=== PATIENT | female | born 1985 | race Caucasian/White ===

== ENCOUNTER → 2017-04-20 10:13 | Outpatient (CLI) | payer MEDICAID ==
[2015-12-02 03:57] VITALS: BMI 24.8
[~2017-04-20 10:13] MED LIST: ACETAMINOPHEN325 MG PO; FERROUS SULFAT325 MG PO; GUAIFENESI100 MG/5 M PO; IBUPROFEN600 MG PO; KEFLEX500 MG PO; PERCOCET 5-3251 TAB PO; PRENATAL COMPLE1 TAB PO; PRENATAL GUMMIES
[2017-04-20 11:03] LABS: CREATININE - SERUM 0.8 mg/dL (0.6-1.3)
== END | disposition home or self-care (01) ==
LOC: D.CT 10:00
PROVIDERS: Family Medicine
DX: R10.9 Unspecified abdominal pain (principal); R11.2 Nausea with vomiting, unspecified; R19.7 Diarrhea, unspecified

== ENCOUNTER 2018-02-17 19:08 | Emergency (ER) | payer MEDICAID ==
[2015-12-02 03:57] VITALS: BMI 24.8
[2018-02-17 19:39] LABS: BASOPHILS 0.2 % (0-2); EOSINOPHILS 0.5 % (0-7); HEMATOCRIT 40.6 % (36.0-48.0); HEMOGLOBIN 13.9 g/dL (12-16); IMMATURE GRANULOCYTES 0.4 % (0-5); LYMPHOCYTES 13.2 % (15-50); MCHC 34.2 g/dL (31.0-37.0); MCV 90.6 fL (80.0-100.0); MONOCYTES 6.3 % (2-11); NEUTROPHILS 79.4 % (40-80); PLATELET COUNT 183 10x3/uL (130-400); RBC 4.48 10x6/uL (4.00-5.40); RDW 12.6 % (11.5-14.5); WBC 11.1 10x3/uL (4.8-10.8)
[2018-02-17 19:46] LABS: INR 1.11 (0.85-1.17); PROTIME 13.9 SECONDS (11.6-15.0)
[2018-02-17 19:48] LABS: D-DIMER-QUANTITATIVE < 0.27 ug/mLFEU (0.20-0.54)
[2018-02-17 20:00] LABS: ALBUMIN 3.9 g/dL (3.4-5.0); ALKALINE PHOSPHATASE 38 U/L (46-116); ALT (SGPT) 21 U/L (10-68); AMYLASE - SERUM 76 U/L (25-115); BILIRUBIN - TOTAL 0.34 mg/dL (0.2-1.3); CALC OSMOLALITY 278 mosm/kg (275-300); CALCIUM 9.3 mg/dL (8.5-10.1); CARBON DIOXIDE 27.6 mmol/L (21.0-32.0); CHLORIDE - SERUM 102 mmol/L (98-107); CREATININE - SERUM 0.8 mg/dL (0.6-1.3); GLUCOSE 87 mg/dL (74-106); LIPASE 211 U/L (73-393); MAGNESIUM - SERUM 2.2 mg/dL (1.8-2.4); POTASSIUM - SERUM 3.3 mmol/L (3.5-5.1); PROTEIN - SERUM 7.7 g/dL (6.4-8.2); SODIUM 140 mmol/L (136-145); UREA NITROGEN 15 mg/dL (7-18); eGFR NON AFRICAN AMERICAN 89 mL/min (90-120)
[2018-02-17 20:01] LABS: HCG SERUM NEGATIVE (NEGATIVE)
[2018-02-17 20:06] LABS: APPEARANCE HAZY (CLEAR); BILIRUBIN NEGATIVE (NEGATIVE); COLOR YELLOW (YELLOW); GLUCOSE NEGATIVE (NEGATIVE); KETONE NEGATIVE (NEGATIVE); NITRITE NEGATIVE (NEGATIVE); PROTEIN NEGATIVE (NEGATIVE); SPECIFIC GRAVITY 1.005 (1.005-1.020); UROBILINOGEN NORMAL (NORMAL)
== END 2018-02-17 21:45 | disposition home or self-care (01) ==
LOC: D.ER 19:08
PROVIDERS: Family Medicine; Nurse Practitioner Family
DX: R10.13 Epigastric pain (principal); R11.10 Vomiting, unspecified; Z87.19 Personal history of other diseases of the digestive system

== ENCOUNTER 2018-02-19 16:48 | Inpatient (IN) | payer MEDICAID ==
[~2018-02-19] VITALS: Ht 172.7 cm; Wt 66.9 kg
[2018-02-19 17:31] LABS: BASOPHILS 0.2 % (0-2); EOSINOPHILS 0.4 % (0-7); HEMATOCRIT 40.9 % (36.0-48.0); HEMOGLOBIN 13.6 g/dL (12-16); LYMPHOCYTES 29.2 % (15-50); MCH 30.4 pg (26.0-34.0); MCHC 33.3 g/dL (31.0-37.0); MCV 91.3 fL (80.0-100.0); MEAN PLATELET VOLUME 11.2 fL (7.4-10.4); MONOCYTES 18.9 % (2-11); NEUTROPHILS 51.3 % (40-80); PLATELET COUNT 166 10x3/uL (130-400); RBC 4.48 10x6/uL (4.00-5.40); RDW 12.6 % (11.5-14.5)
[2018-02-19 17:50] LABS: ALBUMIN 3.9 g/dL (3.4-5.0); ALKALINE PHOSPHATASE 35 U/L (46-116); ALT (SGPT) 22 U/L (10-68); AMYLASE - SERUM 72 U/L (25-115); BILIRUBIN - TOTAL 0.38 mg/dL (0.2-1.3); CALCIUM 9.5 mg/dL (8.5-10.1); CARBON DIOXIDE 23.7 mmol/L (21.0-32.0); CHLORIDE - SERUM 103 mmol/L (98-107); CREATININE - SERUM 0.8 mg/dL (0.6-1.3); GLUCOSE 79 mg/dL (74-106); LIPASE 173 U/L (73-393); POTASSIUM - SERUM 3.4 mmol/L (3.5-5.1); PROTEIN - SERUM 7.9 g/dL (6.4-8.2); SODIUM 139 mmol/L (136-145); WBC 4.5 10x3/uL (4.8-10.8); eGFR NON AFRICAN AMERICAN 89 mL/min (90-120)
[2018-02-19 17:51] LABS: CALC OSMOLALITY 275 mosm/kg (275-300); UREA NITROGEN 10 mg/dL (7-18)
[2018-02-19 17:54] LABS: APPEARANCE CLEAR (CLEAR); BILIRUBIN 2+ (NEGATIVE); COLOR YELLOW (YELLOW); GLUCOSE NEGATIVE (NEGATIVE); KETONE SMALL mg/dL (NEGATIVE); NITRITE NEGATIVE (NEGATIVE); PROTEIN NEGATIVE (NEGATIVE); SPECIFIC GRAVITY 1.015 (1.005-1.020)
[2018-02-19 17:55] LABS: BACTERIA FEW /hpf (NONE SEEN); MUCUS <1+ /lpf (NONE SEEN); RED CELLS - URINE 0-5 /hpf (0-5); WHITE CELLS - URINE 0-5 /hpf (0-5)
[2018-02-19 17:56] LABS: CALCIUM OXALATE CRYSTALS 0-5 /hpf (NONE SEEN)
[2018-02-19 21:34] VITALS: BP 112/66; BMI 21.3
[2018-02-19] MEDS ORDERED: EFFEXOR75 MG PO (21:49)
[2018-02-19] MEDS ORDERED: BUTALB-APAP-CA1 EACH PO (21:51)
[2018-02-19] MEDS ORDERED: DOXYCYCLINE HY100 M2 PO (21:53)
[2018-02-19] MEDS ORDERED: REGLAN10 MG PO (21:53)
[2018-02-19] MEDS ORDERED: PHENERGAN25 MG RC (21:54)
[2018-02-20] VITALS: BP 109/61
[2018-02-20 04:00] VITALS: BP 90/53
[2018-02-20 06:26] LABS: ALBUMIN 2.8 g/dL (3.4-5.0); ALKALINE PHOSPHATASE 23 U/L (46-116); ALT (SGPT) 18 U/L (10-68); BILIRUBIN - TOTAL 0.14 mg/dL (0.2-1.3); CALC OSMOLALITY 279 mosm/kg (275-300); CALCIUM 8.5 mg/dL (8.5-10.1); CARBON DIOXIDE 25.1 mmol/L (21.0-32.0); CHLORIDE - SERUM 108 mmol/L (98-107); CREATININE - SERUM 0.7 mg/dL (0.6-1.3); GLUCOSE 89 mg/dL (74-106); POTASSIUM - SERUM 3.9 mmol/L (3.5-5.1); SODIUM 141 mmol/L (136-145); UREA NITROGEN 13 mg/dL (7-18); eGFR NON AFRICAN AMERICAN > 90 mL/min (90-120)
[2018-02-20 07:29] LABS: HEMATOCRIT 33.7 % (36.0-48.0); MCH 30.3 pg (26.0-34.0); MCHC 32.6 g/dL (31.0-37.0); MCV 92.8 fL (80.0-100.0); MEAN PLATELET VOLUME 10.8 fL (7.4-10.4); PLATELET COUNT 135 10x3/uL (130-400); RBC 3.63 10x6/uL (4.00-5.40); RDW 12.8 % (11.5-14.5)
[2018-02-20 07:44] LABS: WBC 3.2 10x3/uL (4.8-10.8)
[2018-02-20 08:02] VITALS: BP 102/55
[2018-02-20 08:31] LABS: BASOPHILS 1 % (0-2); EOSINOPHILS 4 % (0-7); LYMPHOCYTES 39 % (15-50); MONOCYTES 18 % (2-11); NEUTROPHILS 38 % (40-80); PLATELET ESTIMATE NORMAL
[2018-02-20 10:38] VITALS: BP 108/64
[2018-02-20 13:39] VITALS: BMI 21.2
[2018-02-20 14:48] LABS: HCG URINE NEGATIVE (NEGATIVE)
[2018-02-20 15:50] VITALS: Ht 172.7 cm; Wt 66.9 kg
[2018-02-20 20:15] VITALS: BP 123/75
[2018-02-20 23:40] VITALS: BP 108/76
[2018-02-21 04:05] VITALS: BP 96/67
[2018-02-21 05:39] LABS: BASOPHILS 0.2 % (0-2); EOSINOPHILS 0.8 % (0-7); HEMATOCRIT 32.9 % (36.0-48.0); HEMOGLOBIN 10.8 g/dL (12-16); IMMATURE GRANULOCYTES 0.2 % (0-5); MCH 30.3 pg (26.0-34.0); MCHC 32.8 g/dL (31.0-37.0); MCV 92.2 fL (80.0-100.0); MEAN PLATELET VOLUME 11.1 fL (7.4-10.4); NEUTROPHILS 65.8 % (40-80); PLATELET COUNT 139 10x3/uL (130-400); RBC 3.57 10x6/uL (4.00-5.40); RDW 12.5 % (11.5-14.5)
[2018-02-21 06:28] LABS: ALBUMIN 2.7 g/dL (3.4-5.0); ALKALINE PHOSPHATASE 53 U/L (46-116); CALCIUM 8.3 mg/dL (8.5-10.1); CARBON DIOXIDE 27.3 mmol/L (21.0-32.0); CHLORIDE - SERUM 106 mmol/L (98-107); CREATININE - SERUM 0.7 mg/dL (0.6-1.3); GLUCOSE 106 mg/dL (74-106); PROTEIN - SERUM 5.9 g/dL (6.4-8.2); SODIUM 141 mmol/L (136-145); eGFR NON AFRICAN AMERICAN > 90 mL/min (90-120)
[2018-02-21 06:38] LABS: ALT (SGPT) 698 U/L (10-68); CALC OSMOLALITY 278 mosm/kg (275-300); POTASSIUM - SERUM 3.1 mmol/L (3.5-5.1); UREA NITROGEN 6 mg/dL (7-18)
[2018-02-21 08:05] VITALS: BP 108/72
[2018-02-21] MEDS ORDERED: NORCO-5 PO (11:12)
[2018-02-21 11:49] VITALS: BP 100/70
== END 2018-02-21 17:01 | disposition home or self-care (01) | DRG 419 ==
LOC: D.ER 16:48 → D.EDHOLD 20:36 → D.M2 20:36
PROVIDERS: Emergency Medicine; Family Medicine; Surgery
PROC: 0FT44ZZ Resection of Gallbladder, Percutaneous Endoscopic Approach (ICD-10-PCS; principal; 2018-02-20 13:00)
DX: K80.20 Calculus of gallbladder without cholecystitis without obstruction (principal); K21.9 Gastro-esophageal reflux disease without esophagitis; Z87.891 Personal history of nicotine dependence

== ENCOUNTER 2018-06-26 10:12 | Inpatient (IN) | payer MEDICAID ==
[~2018-06-26] VITALS: Ht 172.7 cm; Wt 62.7 kg
[~2018-06-26 10:12] MED LIST changes: +BUTALB-APAP-CA1 EACH PO; +DOXYCYCLINE HY100 M2 PO; +EFFEXOR75 MG PO; +NORCO-5 PO; +PHENERGAN25 MG RC; +REGLAN10 MG PO
[2018-06-26] MEDS ORDERED: ZOFRAN ODT4 MG/UDTAB PO (13:07)
[2018-06-26] MEDS ORDERED: CYCLOBENZAPRINE10 MG PO (13:09)
[2018-06-26 13:40] VITALS: BP 104/71; BMI 21.0
[2018-06-26 14:23] LABS: BASOPHILS 0.5 % (0-2); EOSINOPHILS 0.9 % (0-7); HEMATOCRIT 36.1 % (36.0-48.0); HEMOGLOBIN 11.8 g/dL (12-16); IMMATURE GRANULOCYTES 0.1 % (0-5); MCH 30.3 pg (26.0-34.0); MCHC 32.7 g/dL (31.0-37.0); MCV 92.6 fL (80.0-100.0); NEUTROPHILS 66.5 % (40-80); RDW 12.5 % (11.5-14.5); WBC 8.6 10x3/uL (4.8-10.8)
[2018-06-26 14:24] LABS: PLATELET COUNT 171 10x3/uL (130-400)
[2018-06-26 14:45] LABS: ALBUMIN 3.5 g/dL (3.4-5.0); ALKALINE PHOSPHATASE 31 U/L (46-116); ALT (SGPT) 23 U/L (10-68); BILIRUBIN - TOTAL 0.46 mg/dL (0.2-1.3); CALC OSMOLALITY 280 mosm/kg (275-300); CALCIUM 8.9 mg/dL (8.5-10.1); CARBON DIOXIDE 25.2 mmol/L (21.0-32.0); CHLORIDE - SERUM 106 mmol/L (98-107); CREATININE - SERUM 0.8 mg/dL (0.6-1.3); GLUCOSE 76 mg/dL (74-106); POTASSIUM - SERUM 3.9 mmol/L (3.5-5.1); PROTEIN - SERUM 6.8 g/dL (6.4-8.2); SODIUM 141 mmol/L (136-145); UREA NITROGEN 14 mg/dL (7-18); eGFR NON AFRICAN AMERICAN 89 mL/min (90-120)
[2018-06-26 18:32] LABS: CKMB 0.2 U/L (0.0-3.6); CREATINE KINASE 62 UL (21-215)
[2018-06-26 18:33] LABS: TROPONIN-I < 0.017 ng/mL (0.000-0.060)
[2018-06-26 19:00] VITALS: BP 111/50
[2018-06-26 20:00] VITALS: BP 111/50
[2018-06-26 23:46] LABS: CKMB 0.4 U/L (0.0-3.6); CREATINE KINASE 47 UL (21-215)
[2018-06-26 23:48] LABS: TROPONIN-I < 0.017 ng/mL (0.000-0.060)
[2018-06-27 04:00] VITALS: BP 100/55
[2018-06-27 06:12] LABS: BASOPHILS 0.6 % (0-2); EOSINOPHILS 2.6 % (0-7); HEMATOCRIT 33.4 % (36.0-48.0); HEMOGLOBIN 10.9 g/dL (12-16); IMMATURE GRANULOCYTES 0.2 % (0-5); MCH 30.3 pg (26.0-34.0); MCHC 32.6 g/dL (31.0-37.0); MCV 92.8 fL (80.0-100.0); MONOCYTES 12.5 % (2-11); NEUTROPHILS 56.1 % (40-80); PLATELET COUNT 157 10x3/uL (130-400); RDW 12.5 % (11.5-14.5)
[2018-06-27 07:30] LABS: CALC OSMOLALITY 278 mosm/kg (275-300); CALCIUM 8.1 mg/dL (8.5-10.1); CHLORIDE - SERUM 107 mmol/L (98-107); CKMB 0.3 U/L (0.0-3.6); CREATINE KINASE 40 UL (21-215); CREATININE - SERUM 0.9 mg/dL (0.6-1.3); GLUCOSE 88 mg/dL (74-106); POTASSIUM - SERUM 3.8 mmol/L (3.5-5.1); SODIUM 141 mmol/L (136-145); THYROID STIMULATING HORMONE 1.13 uIU/mL (0.36-3.74); TROPONIN-I < 0.017 ng/mL (0.000-0.060); eGFR NON AFRICAN AMERICAN 77 mL/min (90-120)
[2018-06-27 07:32] LABS: UREA NITROGEN 10 mg/dL (7-18)
[2018-06-27 07:59] VITALS: BP 109/60
[2018-06-27 11:21] VITALS: BP 100/54
[2018-06-27 13:13] VITALS: Ht 172.7 cm; Wt 62.7 kg
[2018-06-27 15:24] VITALS: BP 112/64
[2018-06-27 20:00] VITALS: BP 111/67
[2018-06-27 21:25] LABS: APPEARANCE CLEAR (CLEAR); BILIRUBIN NEGATIVE (NEGATIVE); COLOR YELLOW (YELLOW); GLUCOSE NEGATIVE (NEGATIVE); KETONE NEGATIVE (NEGATIVE); NITRITE NEGATIVE (NEGATIVE); PROTEIN NEGATIVE (NEGATIVE); UROBILINOGEN NORMAL (NORMAL)
[2018-06-27 21:27] LABS: EPITHELIAL CELLS 0-5 /hpf (0-5); RED CELLS - URINE 0-5 /hpf (0-5); WHITE CELLS - URINE 0-5 /hpf (0-5)
[2018-06-27 21:28] LABS: BACTERIA MODERATE /hpf (NONE SEEN)
[2018-06-28 04:00] VITALS: BP 109/68
[2018-06-28 07:59] VITALS: BP 101/61
[2018-06-28 21:01] VITALS: BP 107/68
[2018-06-29 01:32] VITALS: BP 109/62
[2018-06-29 05:30] LABS: BASOPHILS 0.6 % (0-2); EOSINOPHILS 1.3 % (0-7); HEMATOCRIT 34.9 % (36.0-48.0); HEMOGLOBIN 11.4 g/dL (12-16); IMMATURE GRANULOCYTES 0.2 % (0-5); LYMPHOCYTES 29.1 % (15-50); MCH 30.2 pg (26.0-34.0); MCHC 32.7 g/dL (31.0-37.0); MCV 92.6 fL (80.0-100.0); MEAN PLATELET VOLUME 10.9 fL (7.4-10.4); MONOCYTES 8.7 % (2-11); NEUTROPHILS 60.1 % (40-80); PLATELET COUNT 172 10x3/uL (130-400); RBC 3.77 10x6/uL (4.00-5.40); RDW 12.4 % (11.5-14.5); WBC 6.2 10x3/uL (4.8-10.8)
[2018-06-29 05:58] LABS: ALBUMIN 3.1 g/dL (3.4-5.0); ALKALINE PHOSPHATASE 26 U/L (46-116); ALT (SGPT) 21 U/L (10-68); BILIRUBIN - TOTAL 0.32 mg/dL (0.2-1.3); CALC OSMOLALITY 273 mosm/kg (275-300); CALCIUM 8.4 mg/dL (8.5-10.1); CARBON DIOXIDE 26.4 mmol/L (21.0-32.0); CHLORIDE - SERUM 103 mmol/L (98-107); CREATININE - SERUM 0.8 mg/dL (0.6-1.3); GLUCOSE 84 mg/dL (74-106); POTASSIUM - SERUM 3.7 mmol/L (3.5-5.1); PROTEIN - SERUM 6.7 g/dL (6.4-8.2); SODIUM 138 mmol/L (136-145); UREA NITROGEN 11 mg/dL (7-18); eGFR NON AFRICAN AMERICAN 89 mL/min (90-120)
[2018-06-29] MEDS ORDERED: REGLAN10 MG PO (12:20)
[2018-06-29] MEDS ORDERED: LEVAQUIN250 MG PO (12:21)
[2018-07-04 03:11] LABS: OVA + PARASITE EXAM Final report (())
== END 2018-06-29 15:03 | disposition home or self-care (01) | DRG 392 ==
LOC: D.SDCHOLD 10:12 → D.M2 11:36
PROVIDERS: Family Medicine; Internal Medicine Gastroenterology; Internal Medicine Nephrology
PROC: 0DB98ZX Excision of Duodenum, Via Natural or Artificial Opening Endoscopic, Diagnostic (ICD-10-PCS; principal; 2018-06-26)
PROC: 0DB68ZX Excision of Stomach, Via Natural or Artificial Opening Endoscopic, Diagnostic (ICD-10-PCS; 2018-06-26)
DX: K31.84 Gastroparesis (principal); K21.0 Gastro-esophageal reflux disease with esophagitis; K29.70 Gastritis, unspecified, without bleeding; K59.00 Constipation, unspecified; R19.7 Diarrhea, unspecified

== ENCOUNTER → 2018-09-06 07:44 | Outpatient (CLI) | payer MEDICAID ==
[2018-06-27 13:13] VITALS: BMI 20.9
[~2018-09-06 07:44] MED LIST changes: +CYCLOBENZAPRINE10 MG PO; +LEVAQUIN250 MG PO; +ZOFRAN ODT4 MG/UDTAB PO
== END | disposition home or self-care (01) ==
LOC: D.RAD 07:44
DX: R11.2 Nausea with vomiting, unspecified (principal); R10.84 Generalized abdominal pain; K92.1 Melena; K21.9 Gastro-esophageal reflux disease without esophagitis

== ENCOUNTER 2018-10-29 21:45 | Emergency (ER) | payer SELFPAY ==
[~2018-10-29] VITALS: Ht 172.7 cm; Wt 63.6 kg
[2018-10-29 21:51] VITALS: Ht 172.7 cm; Wt 63.6 kg
[2018-10-29 22:18] LABS: BASOPHILS 0.5 % (0-2); EOSINOPHILS 0.2 % (0-7); HEMATOCRIT 38.3 % (36.0-48.0); HEMOGLOBIN 13.5 g/dL (12-16); IMMATURE GRANULOCYTES 0.2 % (0-5); LYMPHOCYTES 26.6 % (15-50); MCH 31.9 pg (26.0-34.0); MCHC 35.2 g/dL (31.0-37.0); MCV 90.5 fL (80.0-100.0); MEAN PLATELET VOLUME 10.7 fL (7.4-10.4); MONOCYTES 5.2 % (2-11); NEUTROPHILS 67.3 % (40-80); RBC 4.23 10x6/uL (4.00-5.40); RDW 12.4 % (11.5-14.5); WBC 8.5 10x3/uL (4.8-10.8)
[2018-10-29 22:20] LABS: PLATELET COUNT 210 10x3/uL (130-400)
[2018-10-29 22:30] LABS: ALBUMIN 4.2 g/dL (3.4-5.0); ALKALINE PHOSPHATASE 35 U/L (46-116); ALT (SGPT) 24 U/L (10-68); BILIRUBIN - TOTAL 0.35 mg/dL (0.2-1.3); CALC OSMOLALITY 280 mosm/kg (275-300); CALCIUM 9.4 mg/dL (8.5-10.1); CARBON DIOXIDE 25.4 mmol/L (21.0-32.0); CHLORIDE - SERUM 100 mmol/L (98-107); CREATININE - SERUM 0.9 mg/dL (0.6-1.3); GLUCOSE 111 mg/dL (74-106); POTASSIUM - SERUM 3.2 mmol/L (3.5-5.1); PROTEIN - SERUM 8.2 g/dL (6.4-8.2); SODIUM 138 mmol/L (136-145); UREA NITROGEN 23 mg/dL (7-18); eGFR NON AFRICAN AMERICAN 77 mL/min (90-120)
[2018-10-29 22:35] LABS: APPEARANCE HAZY (CLEAR); BILIRUBIN NEGATIVE (NEGATIVE); COLOR YELLOW (YELLOW); GLUCOSE NEGATIVE (NEGATIVE); KETONE NEGATIVE (NEGATIVE); NITRITE NEGATIVE (NEGATIVE); PROTEIN TRACE mg/dL (NEGATIVE); SPECIFIC GRAVITY 1.015 (1.005-1.020); UROBILINOGEN NORMAL (NORMAL)
[2018-10-29 22:36] LABS: BACTERIA MODERATE /hpf (NONE SEEN); EPITHELIAL CELLS 0-5 /hpf (0-5); WHITE CELLS - URINE 0-5 /hpf (0-5)
[2018-10-29 22:36] LABS: AMYLASE - SERUM 163 U/L (25-115); LIPASE 227 U/L (73-393); TROPONIN-I < 0.017 ng/mL (0.000-0.060)
[2018-10-30] MEDS ORDERED: PHENERGAN25 M1 PO (01:14)
[2018-10-30] MEDS ORDERED: MIRALAX17 GM PO (01:15)
[2018-10-30 01:25] VITALS: BP 125/75
== END 2018-10-30 01:27 | disposition home or self-care (01) ==
LOC: D.ER 21:45
PROVIDERS: Family Medicine
DX: K56.41 Fecal impaction (principal); R11.2 Nausea with vomiting, unspecified

== ENCOUNTER 2020-04-22 17:13 | Emergency (ER) | payer SELFPAY ==
[~2020-04-22] VITALS: Ht 172.7 cm; Wt 63.6 kg
[~2020-04-22 17:13] MED LIST changes: +MIRALAX17 GM PO; +PHENERGAN25 M1 PO
[2020-04-22 17:52] VITALS: Ht 172.7 cm; Wt 63.6 kg
[2020-04-22 18:43] LABS: CALC OSMOLALITY 275 mosm/kg (275-300); CALCIUM 9.3 mg/dL (8.5-10.1); CARBON DIOXIDE 25.1 mmol/L (21.0-32.0); CHLORIDE - SERUM 104 mmol/L (98-107); CREATININE - SERUM 0.8 mg/dL (0.6-1.3); GLUCOSE 88 mg/dL (74-106); POTASSIUM - SERUM 3.5 mmol/L (3.5-5.1); SODIUM 139 mmol/L (136-145); UREA NITROGEN 11 mg/dL (7-18); eGFR NON AFRICAN AMERICAN 87 mL/min (90-120)
[2020-04-22 18:55] LABS: APTT 26.2 SECONDS (22.8-39.4); INR 0.92 (0.85-1.17); PROTIME 12.4 SECONDS (11.6-15.0)
[2020-04-22 18:58] LABS: HEMATOCRIT 41.6 % (36.0-48.0); HEMOGLOBIN 13.9 g/dL (12-16); LYMPHOCYTES 25.3 % (15-50); MCHC 33.4 g/dL (31.0-37.0); MCV 92.9 fL (80.0-100.0); MEAN PLATELET VOLUME 10.7 fL (7.4-10.4); NEUTROPHILS 67.1 % (40-80); PLATELET COUNT 219 10x3/uL (130-400); RBC 4.48 10x6/uL (4.00-5.40); RDW 12.2 % (11.5-14.5); WBC 9.3 10x3/uL (4.8-10.8)
[2020-04-22 19:00] LABS: ALBUMIN 4.2 g/dL (3.4-5.0); ALKALINE PHOSPHATASE 44 U/L (30-120); ALT (SGPT) 19 U/L (10-68); BILIRUBIN - TOTAL 0.18 mg/dL (0.2-1.3); CKMB 0.4 U/L (0.0-3.6); CREATINE KINASE 59 UL (21-215); PRO BNP 46 pg/mL (0-125); PROTEIN - SERUM 8.4 g/dL (6.4-8.2)
[2020-04-22 19:01] LABS: TROPONIN-I < 0.017 ng/mL (0.000-0.060)
[2020-04-22] MEDS ORDERED: ZOFRAN ODT4 MG/UDTAB PO (19:54)
[2020-04-22 21:20] VITALS: BP 118/73
== END 2020-04-22 21:20 | disposition home or self-care (01) ==
LOC: D.ER 17:13
PROVIDERS: Emergency Medicine
DX: R06.00 Dyspnea, unspecified (principal); J45.909 Unspecified asthma, uncomplicated; R07.9 Chest pain, unspecified; R05 Cough; R11.2 Nausea with vomiting, unspecified; R19.7 Diarrhea, unspecified

== ENCOUNTER 2021-02-16 16:55 | Emergency (ER) | payer OTHER ==
[~2021-02-16] VITALS: Ht 172.7 cm; Wt 69.1 kg
[2021-02-16 17:25] VITALS: Ht 172.7 cm; Wt 69.1 kg
[2021-02-16 17:55] LABS: BASOPHILS 0.8 % (0-2); HEMATOCRIT 37.5 % (36.0-48.0); HEMOGLOBIN 12.3 g/dL (12-16); IMMATURE GRANULOCYTES 0.3 % (0-5); LYMPHOCYTE ABS# 2.34 10x3/uL (1.18-3.74); LYMPHOCYTES 29.4 % (15-50); MCH 31.1 pg (26.0-34.0); MCHC 32.8 g/dL (31.0-37.0); MCV 94.7 fL (80.0-100.0); MEAN PLATELET VOLUME 10.5 fL (7.4-10.4); MONOCYTES 9.2 % (2-11); NEUTROPHIL ABS# 4.73 10x3/uL (1.56-6.13); NEUTROPHILS 59.3 % (40-80); PLATELET COUNT 242 10x3/uL (130-400); RBC 3.96 10x6/uL (4.00-5.40); RDW 12.5 % (11.5-14.5)
[2021-02-16 18:07] LABS: CALC OSMOLALITY 277 mosm/kg (275-300); CALCIUM 9.5 mg/dL (8.5-10.1); CARBON DIOXIDE 29.7 mmol/L (21.0-32.0); CHLORIDE - SERUM 104 mmol/L (98-107); CREATININE - SERUM 0.8 mg/dL (0.6-1.3); GLUCOSE 86 mg/dL (74-106); POTASSIUM - SERUM 3.6 mmol/L (3.5-5.1); SODIUM 140 mmol/L (136-145); UREA NITROGEN 12 mg/dL (7-18); eGFR NON AFRICAN AMERICAN 87 mL/min (90-120)
[2021-02-16 18:12] LABS: BILIRUBIN NEGATIVE (NEGATIVE); KETONE NEGATIVE (NEGATIVE); NITRITE NEGATIVE (NEGATIVE); UROBILINOGEN NORMAL mg/dL (< 2)
[2021-02-16 18:13] LABS: HCG URINE NEGATIVE (NEGATIVE)
[2021-02-16 18:16] LABS: ALKALINE PHOSPHATASE 41 U/L (30-120); ALT (SGPT) 17 U/L (10-68); AMYLASE - SERUM 74 U/L (25-115); BILIRUBIN - TOTAL 0.19 mg/dL (0.2-1.3); LIPASE 275 U/L (73-393); PROTEIN - SERUM 7.9 g/dL (6.4-8.2)
[2021-02-16 18:20] LABS: TROPONIN-I < 0.017 ng/mL (0.000-0.060)
[2021-02-16 21:21] VITALS: BP 121/80
== END 2021-02-16 21:10 | disposition home or self-care (01) ==
LOC: D.ER 16:55
PROVIDERS: Family Medicine
DX: K58.1 Irritable bowel syndrome with constipation (principal); R10.31 Right lower quadrant pain; J45.909 Unspecified asthma, uncomplicated

== ENCOUNTER 2021-02-27 16:48 | Emergency (ER) | payer OTHER ==
[~2021-02-27] VITALS: Ht 172.7 cm; Wt 69.1 kg
[2021-02-27 16:55] VITALS: Ht 172.7 cm; Wt 69.1 kg
[2021-02-27] MEDS ORDERED: SEROQUEL100 MG PO (16:57)
[2021-02-27] MEDS ORDERED: NORTRIPTYLINE H50 MG PO (16:57)
[2021-02-27] MEDS ORDERED: CARAFATE1 G PO (16:58)
[2021-02-27] MEDS ORDERED: VALIUM10 MG PO (16:58)
[2021-02-27] MEDS ORDERED: PHENERGAN25 M1 PO (16:58)
[2021-02-27 17:19] LABS: BASOPHILS 0.8 % (0-2); EOSINOPHILS 1.6 % (0-7); HEMATOCRIT 39.2 % (36.0-48.0); HEMOGLOBIN 13.1 g/dL (12-16); LYMPHOCYTES 25.1 % (15-50); MCH 30.8 pg (26.0-34.0); MCHC 33.4 g/dL (31.0-37.0); MEAN PLATELET VOLUME 8.7 fL (7.4-10.4); NEUTROPHILS 65.5 % (40-80); PLATELET COUNT 227 10x3/uL (130-400); RBC 4.26 10x6/uL (4.00-5.40); WBC 7.2 10x3/uL (4.8-10.8)
[2021-02-27 17:26] LABS: CALC OSMOLALITY 280 mosm/kg (275-300); CALCIUM 9.1 mg/dL (8.5-10.1); CARBON DIOXIDE 25.2 mmol/L (21.0-32.0); CHLORIDE - SERUM 102 mmol/L (98-107); CREATININE - SERUM 0.9 mg/dL (0.6-1.3); GLUCOSE 93 mg/dL (74-106); POTASSIUM - SERUM 3.3 mmol/L (3.5-5.1); SODIUM 141 mmol/L (136-145); UREA NITROGEN 13 mg/dL (7-18); eGFR NON AFRICAN AMERICAN 76 mL/min (90-120)
[2021-02-27 17:35] LABS: ALKALINE PHOSPHATASE 38 U/L (30-120); ALT (SGPT) 24 U/L (10-68); AMYLASE - SERUM 94 U/L (25-115); BILIRUBIN - TOTAL 0.26 mg/dL (0.2-1.3); LIPASE 219 U/L (73-393); PROTEIN - SERUM 8.1 g/dL (6.4-8.2); TROPONIN-I < 0.017 ng/mL (0.000-0.060)
[2021-02-27 18:06] LABS: HCG URINE NEGATIVE (NEGATIVE)
[2021-02-27 18:33] LABS: BACTERIA MANY HPF (NONE SEEN); BILIRUBIN NEGATIVE (NEGATIVE); KETONE NEGATIVE (NEGATIVE); NITRITE NEGATIVE (NEGATIVE); UROBILINOGEN NORMAL mg/dL (< 2)
[2021-02-27] MEDS ORDERED: DIFLUCAN150 MG PO (19:47)
[2021-02-27] MEDS ORDERED: CEPHALEXIN500 M1 PO (19:47)
[2021-02-27] MEDS ORDERED: ZOFRAN ODT4 MG/UDTAB PO (19:47)
[2021-02-27 21:24] VITALS: BP 120/72
== END 2021-02-27 21:24 | disposition home or self-care (01) ==
LOC: D.ER 16:48
PROVIDERS: Family Medicine; Student in an Organized Health Care Education/Training Program
DX: R10.9 Unspecified abdominal pain (principal); R11.10 Vomiting, unspecified; J45.909 Unspecified asthma, uncomplicated